=== PATIENT | male | born 1955 | race Caucasian/White ===

== ENCOUNTER 2018-05-17 13:38 | Emergency (ER) | payer OTHER ==
[~2018-05-17] VITALS: Ht 177.8 cm; Wt 90.7 kg
[2018-05-17] MEDS ORDERED: CARVEDILOL25 MG PO (13:48)
[2018-05-17] MEDS ORDERED: ELIQUIS5 MG PO (13:49)
[2018-05-17] MEDS ORDERED: LIPITOR20 MG PO (13:49)
[2018-05-17] MEDS ORDERED: ZESTRIL40 M1 PO (13:50)
[2018-05-17] MEDS ORDERED: ALLOPURINOL300 MG PO (13:50)
[2018-05-17] MEDS ORDERED: LEXAPRO20 MG PO (13:51)
[2018-05-17] MEDS ORDERED: NORVASC5 MG PO (13:51)
== END 2018-05-17 18:03 | disposition home or self-care (01) ==
LOC: ER 13:38
DX: N39.0 Urinary tract infection, site not specified (principal); R10.31 Right lower quadrant pain

== ENCOUNTER 2018-05-23 21:13 | Inpatient (IN) | payer OTHER ==
[~2018-05-23] VITALS: Ht 177.8 cm; Wt 95.3 kg
[~2018-05-23 21:13] MED LIST: ALLOPURINOL300 MG PO; CARVEDILOL25 MG PO; ELIQUIS5 MG PO; LEXAPRO20 MG PO; LIPITOR20 MG PO; NORVASC5 MG PO; ZESTRIL40 M1 PO
--- NOTE | 2018-05-23 21:28 | NUR ---
SE RECIBE PTE ALERTA Y ORIENTADO EL CUAL REFIERE QUE SIENTE PALPITACIONES SE REALIZA Y EKG Y SE PRESENTA AL DR CHANG SE UBICA PTE EN AREA DE CENTRO DE DOLOR DE PECHO Y SE CONECTA A MONITOR CARDIACO Y OXYMETRIA DE PULSO, SE TRASLADA PTE EN SILLON DE TRUONG.
--- NOTE | 2018-05-23 22:43 | NUR ---
SE RECIBE PTE MASCULINO ALERTA Y ORIENTADO X3,SIN FAMILIAR,SE COLOCA EN DIVYA #16 CPU ER,SE CONECTA A MONITOR CARDIACO BARNEY,ES EVALUADO POR ,SE ORIENTAA PTE SOBRE ORDEN MEDICA,SE AUGUSTIN MUESTRAS Y SE ENVIAN A LABORATORIO,SE CANALIZA Y COLOCA H/L PATENTE DUTCH DE EDEMA Y ENROECIMIENTO,SE ADMINISTRA CARDIZEN MINERVA IVPUSH Y LUEGO SE COLOCA DRIP CARDIZEN 100/100@3ML/HR,SE OBSERVA A MONITOR DONDE PTE BAJA CAMPBELL PULDO ENTRE 72 A 88,Y SE REALIZA EKG Y SE NOTIFICA A ,MELANIA ORDENA SE DESCONTINUE DRIP Y SE MANTENGA PTE EN OBSERVACION POR CAMBIOS.SE MANTIENE A PTE EN VIGILANCIA BARNEY POR CAMBIOS.
--- NOTE | 2018-05-23 23:20 | NUR ---
SE RECIBE PACIENTE ESTABLE, ALERTA Y ORIENTADO X3 CON HX DE FIBRILACION, AL MOMENTO PACIENTE CON BUEN PATRON RESPIRATORIO [place] [facility] ORDENADO. SE FOMENTA A UTILIZAR LOS SERVICIOS DE ENFERMERIA Y EQUIPO MULTIDISCIPLINARIO EL CUAL REFIERE EXCELENTE RETROALIMENTACION DE LO ORIENTADO, PACIENTE AL MOMENTO DUTCH DE DOLOR CON BARANDAS ELEVADAS, FRENO DE DIVYA COLOCADO POR SEGURIDAD Y OBSERVACION CONTINUA DE MONITOR CARDIACO Y SIGNOS VITALES. SE CONTINUA MONITOREANDO POR CAMBIOS SIGNIFICATIVOS, PACIENTE AL MOMENTO HEMODINAMICAMENTE ESTABLE DENTRO DE CAMPBELL CONDICION Y DIAGNOSTICO.
--- NOTE | 2018-05-24 02:57 | NUR ---
SE ZENON ELIEL PREVENTIVA, PACIENTE AL MOMENTO ESTABLE, SIGNOS VITALES ESTABLES, ALERTA Y ORIENTADO X3 [facility] [place] [facility]; AL MOMENTO CON IVF'S PATENTES, VENOPUNCION DUTCH DE EDEMA Y ERITEMA. SE CONTINUA MONITOREANDO POR CAMBIOS.
--- NOTE | 2018-05-24 06:22 | NUR ---
PACIENTE AL MOMENTO ESTABLE, SIGNOS VITALES ESTABLES, ALERTA Y ORIENTADO X3 [facility]; SE ZENON ELIEL PREVENTIVA EL CUAL AL MOMENTO ESTA [place] [facility] ORDENADO, MELANIA AL MOMENTO PENDIENTE A CONSULTA. SE CONTINUA MONITOREANDO POR CAMBIOS.
--- NOTE | 2018-05-24 08:10 | NUR ---
SE RECIBE PACIENTE EN LA UNDIDAD DE MANEJO DE DOLOR DE PECHO DE LA JAGDEEP DE EMRGENCIAS EN DIVYA NUM-16.ESTA ALERTA Y ORINTADO.CONECTADO A MONITOR CARDIACO Y OXIMETRIA.AREA DE VENOPUNCION ESTA LIMPIA Y SECA,DUTCH DE EDEMA RECIBIEDO POR MEDIO DE VENA PERIFERAL EN BRAZO IZQ:DRIP DE CARDOICEM 100 MG EN 100 ML DE 0.9 NSS A 5 ML/HR. ES MANTENIDO CON CABEZERA A 45 GRADOS,BARANDAS ELEVADAS,TIMBRE ACCESIBLE Y EN OBSERVACION BARNEY POR CAMBIOS EN CONDICION
== END 2018-05-26 16:45 | disposition home or self-care (01) | DRG 309 ==
LOC: ER 21:13 → MEDI 05-24 09:12
PROVIDERS: ADMIT Internal Medicine
PROC: 4A12X4Z Monitoring of Cardiac Electrical Activity, External Approach (ICD-10-PCS; principal; 2018-05-24)
PROC: B246ZZZ Ultrasonography of Right and Left Heart (ICD-10-PCS; 2018-05-24)
PROC: BW4GZZZ Ultrasonography of Pelvic Region (ICD-10-PCS; 2018-05-24)
PROC: BV44ZZZ Ultrasonography of Scrotum (ICD-10-PCS; 2018-05-25)
DX: I48.0 Paroxysmal atrial fibrillation (principal); N20.1 Calculus of ureter; K40.90 Unilateral inguinal hernia, without obstruction or gangrene, not specified as recurrent